=== PATIENT | female | born 1960 | race Caucasian/White ===

== ENCOUNTER 2016-08-13 05:27 | Inpatient (IN) ==
--- NOTE | 2016-07-23 12:03 | EKG Report ---
Test Performed on : 07/23/2016 11:24:28 AM Test Reason : PAT Blood Pressure : / mmHG Vent. Rate : 073 BPM Atrial Rate : 073 BPM P-R Int : 108 ms QRS Dur : 080 ms QT Int : 364 ms P-R-T Axes : 069 061 061 degrees QTc Int : 401 ms Sinus rhythm. with short IL Cannot rule out Anterior infarct , age undetermined (probably lead placement variability) Borderline ECG When compared with ECG of 30-DEC-2015 22:04, No significant change was found Confirmed by Lisbeth ORTIZ, Ciro Butcher ([id number]) on 07/23/2016 6:43:34 PM
[2016-07-23 12:13] LABS: HEMATOCRIT 43.1 % (37.0-47.0); HEMOGLOBIN 14.2 g/dL (12.0-16.0); MCH 31.8 PG (27-31); MCHC 32.9 g/dL (33-37); MCV 96.4 FL (81-99); MPV 9.8 FL (7.4-10.4); RBC 4.47 XMIL (4.2-5.4)
[2016-07-23 12:29] LABS: AGAP 10; BUN 15 mg/dL (8-22); CALCIUM 9.7 mg/dL (8.8-10.2); CHLORIDE 98 mmol/L (98-107); COSMO 273; POTASSIUM 4.1 mmol/L (3.5-5.1); SODIUM 136 mmol/L (136-145); TCO2 28 mmol/L (25-35)
[2016-08-10 12:11] LABS: AGAP 11; BUN 15 mg/dL (8-22); CALCIUM 9.2 mg/dL (8.8-10.2); CHLORIDE 103 mmol/L (98-107); COSMO 283; POTASSIUM 4.2 mmol/L (3.5-5.1); SODIUM 142 mmol/L (136-145); TCO2 28 mmol/L (25-35)
[2016-08-10 13:31] LABS: HEMATOCRIT 42.9 % (37.0-47.0); HEMOGLOBIN 13.9 g/dL (12.0-16.0); MCH 31.3 PG (27-31); MCHC 32.4 g/dL (33-37); MCV 96.6 FL (81-99); MPV 10.2 FL (7.4-10.4); RBC 4.44 XMIL (4.2-5.4)
[2016-08-13] MEDS ORDERED: REGLAN ONE (05:37)
[2016-08-13] MEDS ORDERED: VANCOMYCIN 1 GM/NS 1 GM/250 ML IVPB ONE (05:37)
[2016-08-13] MEDS ORDERED: PEPCID ONE (05:37)
[2016-08-13] MEDS ORDERED: LR 1,000 ML ONE ×2 (05:37→06:54)
[2016-08-13] MEDS ORDERED: NAROPIN 0.5% ONE (06:28)
[2016-08-13] MEDS ORDERED: SOLU-CORTEF IV ONE (06:30)
[2016-08-13] MEDS ORDERED: ROBINUL IV ONE (06:30)
[2016-08-13] MEDS ORDERED: VERSED ONE ×2 (06:40→11:05)
[2016-08-13] MEDS ORDERED: MARCAINE 0.25% PF/EPI 1:200,000 ONE (06:47)
[2016-08-13 08:25] LABS: URINE MICRO REVIEW NEEDED? NO; URINE SOURCE CATH
[2016-08-13 08:28] LABS: BILIRUBIN URINE NEGATIVE (NEGATIVE); BLOOD URINE NEGATIVE (NEGATIVE); COLOR STRAW; GLUCOSE URINE NEGATIVE (NEGATIVE); LEUKOCYTES URINE NEGATIVE (NEGATIVE); NITRITE URINE NEGATIVE (NEGATIVE); PH URINE 7.5; PROTEIN URINE NEGATIVE (NEGATIVE); SP GRAVITY URINE 1.006; TURBIDITY URINE CLEAR (CLEAR); UR EPITHELIAL CELLS <10 /HPF (<10); URINE BACTERIA NEGATIVE /HPF; URINE RBC <10 /HPF (<10); URINE WBC <10 /HPF (<10); UROBILINOGEN URINE NORMAL (NORMAL)
[2016-08-13] MEDS ORDERED: SODIUM CHLORIDE 0.9% 10 ML ONE (09:59)
[2016-08-13] MEDS ORDERED: EXPAREL 1.3% ONE (09:59)
[2016-08-13] MEDS ORDERED: MARCAINE 0.25% PF ONE (09:59)
[2016-08-13] MEDS ORDERED: FENTANYL ONE (11:04)
[2016-08-13] MEDS ORDERED: DIPRIVAN 1% ONE (11:05)
[2016-08-13] MEDS ORDERED: NORCURON ONE (11:11)
[2016-08-13] MEDS ORDERED: ROBINUL ONE (11:11)
[2016-08-13] MEDS ORDERED: QUELICIN (DOSE) ONE (11:11)
[2016-08-13] MEDS ORDERED: NEOSTIGMINE ONE (11:11)
[2016-08-13] MEDS ORDERED: LR 2,000 ML ONE (11:11)
[2016-08-13] MEDS ORDERED: XYLOCAINE-MPF 2% ONE (11:11)
[2016-08-13] MEDS ORDERED: ZOFRAN ONE (11:11)
[2016-08-13] MEDS ORDERED: DECADRON ONE (11:11)
[2016-08-13] MEDS ORDERED: OFIRMEV 1000 MG/ISOTONIC SOLN 1,000 MG/100 ML BOTTLE IV SCH (11:12)
[2016-08-13] MEDS ORDERED: OFIRMEV 1000 MG/ISOTONIC SOLN 1,000 MG/100 ML BOTTLE ONE (11:36)
[2016-08-13] MEDS: DILAUDID IV PRN ×5 (11:40→23:03)
[2016-08-13] MEDS ORDERED: SOLU-CORTEF 100 MG in NS 50 ML IV SCH (13:00)
--- NOTE | 2016-08-13 13:02 | Diag Imaging Result Document ---
PROCEDURE NAME: CHEST-PORTABLE - 08/13/2016 PORTABLE CHEST X-RAY: COMPARISON: 07/27/2016. FINDINGS: There are double right chest tubes. There are skin lila over the lateral right chest wall. Lung volumes are low. No significant focal infiltrates. No pneumothorax or pleural effusion. Heart size is normal. IMPRESSION: No complication.
--- NOTE | 2016-08-13 14:39 | OPERATIVE NOTE ---
PROCEDURE DATE: 08/13/2016 DATE OF PROCEDURE: 08/13/2016. PROCEDURE: Diagnostic bronchoscopy; right thoracoscopy with biopsy; right posterolateral thoracotomy with right lower lobectomy. SURGEON: Dr. Yunior Domínguez. PLANT UTILITY PERSON: Subha SHAMAR. PREOPERATIVE DIAGNOSIS: Right lower lobe mass. POSTOPERATIVE DIAGNOSIS: Malignant non-small cell carcinoma, right lower lobe. DESCRIPTION OF PROCEDURE: Satisfactory general and single lumen endotracheal anesthesia was achieved. The flexible bronchoscope was introduced through the oral endotracheal tube. We identified the livier, we identified the left upper lobe, the orifice to the lower lobe and the upper lobes appeared normal. We passed the scope into the right side. The orifice to the upper lobe, middle lobe and lower lobe all appeared normal in a normal anatomic position. No endobronchial lesions were seen. Mucus was aspirated. She was then switched to a double-lumen endotracheal tube, placed in a decubitus position with the right side up. We then prepped and draped her right lateral chest. We anesthetized the skin two fingerbreadths below the tip of the scapula. We made a transverse incision there, incised into the pleural space. The right side, the tracheal side of the endotracheal tube was clamped, allowing the right lung to decompress. After entering the pleural space, we then placed another incision right upper anterior chest and again introduced the Thoracoport there and finally one posteriorly. We identified the major fissure. We identified the upper lobe. We identified the superior dorsal segment of the lower lobe. With the camera through the most posterior Thoracoport I could identify what I felt to be area that was retracted slightly. I then used pushers to roll over this area, and it felt as if a mass was present in the superior dorsal segment of the lower lobe, so I felt confident that this was the area in question. We used a nontraumatic grasping forceps and grasped the mass lesion through the middle most Thoracoport. We then introduced an Endo MICA purple cartridge 60 cm long and stapled across the superior dorsal segment. We had to add an additional 45 to get completely across it and pull the lesion out the most anterior Thoracoport and sent it for frozen section. The frozen section came back as non-small cell malignancy. We then marked the skin, and we then made a posterior lateral thoracotomy incision. It did go through the middle Thoracoport site. We used the electrocautery to go through the subcutaneous tissue, through the latissimus dorsi muscle, through the serratus anterior muscle, and portion of the rhomboids posteriorly. We then entered the sixth intercostal space, which is where a Thoracoport had been placed. Then we opened the chest the extent of the skin incision. The lung was decompressed nicely. We incised the inferior pulmonary ligament. We then went to the major fissure, and the pulmonary artery was identified in the major fissure. We could see branches to the lower lobe, as well as the branch to the superior dorsal segment. We doubly ligated the branches to the lower lobe and then divided them. We took care to avoid injury to the artery to the middle lobe. The anterior fissure was essentially complete. We then dissected deep through the parenchyma right at posterior to the bronchus. We were able to introduce the Endo-MICA purple cartridge 60 cm long and had to do a 60 and a 45 to get completely in to completely divide the fissure. We then identified the inferior pulmonary vein, and dissected around it until we could pass an Endo-MICA hall cartridge to staple and divide it. This then left us with the lower lobe bronchus. We used Endo-MICA black cartridge. It was 45 cm long and passed it across the bronchus. We then closed it. We then allowed the anesthesia people to inflate the upper and middle lobes, which inflated nicely. We then stapled and divided the lower lobe bronchus and handed off the right lower lobe. We went ahead and allowed them to reinflate the upper and middle lobes adequately and completely. We then use ProGEL on the lung parenchyma in order to help stop the leak from the staple line. We did test the bronchus to 35 spheres and it showed no leak. We placed a 28 trocar chest tube through our upper anterior Thoracoport site and secured it there with a 0 silk. I then used a [address] inferiorly to drain the inferior aspect of the thorax. This was also secured with 0 silk. We drilled 3 holes in the sixth rib, 3 holes in the seventh rib and passed #2 Tycron through them to reapproximate the ribs. We used Exparel 20 mL with 30 mL of 0.25 Marcaine plain and 10 mL of normal saline, and then injected it below each the sixth and the seventh ribs, along the course of the muscles, and along the course of the subcutaneous tissue. We then approximated the ribs with our rib reapproximater and then tied the #2 Tycron. We then closed the long serratus or brevis serratus anterior with 1 Polysorb; we closed the latissimus with a 1 Polysorb; we closed the fascia with a 0 Polysorb; we closed the skin with lila. Sterile dressing was applied. Chest tubes were attached to the Pleur-evac. She tolerated it well and was sent to the recovery room in satisfactory condition. cc: MD Nico Romo MD Naveen T. Lobo, MD
[2016-08-13] MEDS: NS 1,000 ML IV SCH ×2 (15:31→21:09)
[2016-08-13] MEDS: STERILE WATER INJ. INJ SCH ×2 (15:32→23:06)
[2016-08-13] MEDS: SOLU-CORTEF IV SCH ×2 (15:32→23:02)
[2016-08-13] MEDS: OFIRMEV 1000 MG/ISOTONIC SOLN 1,000 MG/100 ML BOTTLE IV SCH ×2 (17:42→23:02)
[2016-08-13] MEDS: ZOFRAN IV PRN ×2 (17:42→23:02)
[2016-08-13] MEDS: QVAR 80 MICROGM INHALER INH SCH (19:48)
[2016-08-13] MEDS: ALBUTEROL NEB INH PRN (19:48)
[2016-08-13] MEDS: PERIDEX MT SCH (21:09)
[2016-08-13] MEDS: VANCOMYCIN 1 GM/NS 1 GM/250 ML IVPB IV SCH (21:09)
[2016-08-13] MEDS: ULTRAM PO PRN (21:10)
[2016-08-14] MEDS: ZOFRAN IV PRN ×3 (04:08→21:32)
[2016-08-14] MEDS: OFIRMEV 1000 MG/ISOTONIC SOLN 1,000 MG/100 ML BOTTLE IV SCH ×4 (04:08→23:25)
[2016-08-14 04:47] LABS: ALLEN TEST YES; BE -0.5 mmoll (-3.0-3.0); BLOOD TYPE ARTERIAL; DRAW SITE R RADIAL; METHB 2.1 % (0.0-1.5); PCO2(98.6) 39 mmHg (35-45); PO2(98.6) 104 mmHg (60-100); SAMPLE BLOOD; SAO2 99.6 % (95.0-100.0)
[2016-08-14 04:50] LABS: MODALITY CANNULA
[2016-08-14 04:57] LABS: MANUAL DIFF NEEDED? NO
[2016-08-14 05:01] LABS: EOS# 0.01 X1000 (0.0-0.7); EOS% 0.1 % (0.0-10.0); HEMATOCRIT 36.2 % (37.0-47.0); HEMOGLOBIN 11.7 g/dL (12.0-16.0); IMM GRAN# 0.02 X1000 (0.0-0.04); IMM GRAN% 0.2 % (0.0-0.5); LYMPH# 0.91 X1000 (1.2-3.4); LYMPH% 10.2 % (20.5-51.1); MCHC 32.3 g/dL (33-37); MCV 95.8 FL (81-99); MONO# 0.58 X1000 (0.11-0.59); MONO% 6.5 % (1.7-9.3); MPV 9.8 FL (7.4-10.4); PLT 246 X1000 (130-400); RBC 3.78 XMIL (4.2-5.4)
[2016-08-14 05:19] LABS: AGAP 11; BUN 9 mg/dL (8-22); CALCIUM 8.2 mg/dL (8.8-10.2); CHLORIDE 101 mmol/L (98-107); COSMO 267; POTASSIUM 4.4 mmol/L (3.5-5.1); SODIUM 133 mmol/L (136-145); TCO2 21 mmol/L (25-35)
[2016-08-14] MEDS: SOLU-CORTEF IV SCH ×2 (06:30→17:42)
[2016-08-14] MEDS: DILAUDID IV PRN ×5 (06:31→18:58)
[2016-08-14] MEDS: VANCOMYCIN 1 GM/NS 1 GM/250 ML IVPB IV SCH ×2 (06:31→18:12)
[2016-08-14] MEDS: PERIDEX MT SCH ×2 (08:11→20:36)
[2016-08-14] MEDS: NICODERM PATCH TD SCH (08:13)
[2016-08-14] MEDS: SPIRIVA INH SCH (08:17)
[2016-08-14] MEDS: ALBUTEROL NEB INH PRN ×2 (08:17→19:16)
[2016-08-14] MEDS: QVAR 80 MICROGM INHALER INH SCH ×2 (08:18→19:16)
[2016-08-14] MEDS: NS 1,000 ML IV SCH ×3 (11:57→21:33)
[2016-08-14] MEDS: STERILE WATER INJ. INJ SCH ×3 (12:00→17:43)
[2016-08-14] MEDS ORDERED: PNEUMOVAX 23 IM ONE (12:00)
[2016-08-14] MEDS: TUMS PO PRN ×2 (15:01→18:58)
[2016-08-14] MEDS ORDERED: BLISTEX MEDICATED BERRY LIP BALM TOP PRN (20:38)
[2016-08-15] MEDS: ALBUTEROL NEB INH PRN (07:44)
[2016-08-15] MEDS: QVAR 80 MICROGM INHALER INH SCH ×2 (07:44→20:15)
[2016-08-15] MEDS: SPIRIVA INH SCH (07:44)
[2016-08-15] MEDS: OFIRMEV 1000 MG/ISOTONIC SOLN 1,000 MG/100 ML BOTTLE IV SCH ×3 (09:19→17:30)
[2016-08-15] MEDS: VANCOMYCIN 1 GM/NS 1 GM/250 ML IVPB IV SCH ×2 (09:20→21:55)
[2016-08-15] MEDS: STERILE WATER INJ. INJ SCH ×2 (09:21→17:30)
[2016-08-15] MEDS: NS 1,000 ML IV SCH ×2 (09:21→17:39)
[2016-08-15] MEDS: SOLU-CORTEF IV SCH ×2 (09:21→17:30)
[2016-08-15] MEDS: NICODERM PATCH TD SCH (09:22)
[2016-08-15] MEDS: PERIDEX MT SCH ×2 (09:36→21:55)
[2016-08-15] MEDS: MIRALAX PO SCH (09:36)
--- NOTE | 2016-08-15 10:57 | PROGRESS NOTE ---
DATE: 08/15/2016 SUBJECTIVE: She is sitting in the chair. She is in good spirits. Minimal discomfort. OBJECTIVE: Vital Signs: Temperature is 98.4 degrees, pulse 76, blood pressure 100/68, oxygen saturations 94% on nasal cannula. Chest/Skin: The dressing is clean, dry, and intact. She has got [address] to suction[address] While one of the tubes has a forced expiratory air leak, the other does not, and there is minimal serosanguineous drainage in the tubes. DIAGNOSTIC DATA: I reviewed her labs from yesterday. ABG looked good. Nothing new this morning. Chest x-ray is clear with good expansion of the lung. No subcutaneous air. No effusion. ASSESSMENT AND PLAN: A 55-year-old female, status post right lower lobectomy. She is doing well. She has got an air leak. We will keep her tubes to suction per Dr. Domínguez's protocol. There are transfer orders in to the floor. She is on a diet, and her pain seems reasonably well controlled. We will continue aggressive pulmonary toileting. I have discussed the importance of this with the patient. She is on a steroid taper 100 mg intravenously twice daily. We will begin tapering this again tomorrow, but otherwise, physical therapy and pulmonary toileting is her big issue right now. We will keep her chest tubes. cc: MD Yunior Ruiz MD
[2016-08-15] MEDS: DILAUDID IV PRN ×2 (14:15→21:55)
[2016-08-15] MEDS: ULTRAM PO PRN (17:38)
[2016-08-16] MEDS: OFIRMEV 1000 MG/ISOTONIC SOLN 1,000 MG/100 ML BOTTLE IV SCH ×4 (00:28→18:11)
[2016-08-16] MEDS: TUMS PO PRN ×2 (00:34→05:20)
[2016-08-16] MEDS: ULTRAM PO PRN ×4 (00:57→22:59)
[2016-08-16] MEDS: NS 1,000 ML IV SCH ×2 (01:05→18:13)
[2016-08-16] MEDS: SOLU-CORTEF IV SCH ×2 (05:20→18:11)
[2016-08-16] MEDS: STERILE WATER INJ. INJ SCH ×2 (07:20→19:47)
[2016-08-16] MEDS: QVAR 80 MICROGM INHALER INH SCH ×2 (08:03→19:00)
[2016-08-16] MEDS: ALBUTEROL NEB INH PRN ×2 (08:04→15:30)
[2016-08-16] MEDS: SPIRIVA INH SCH (08:04)
[2016-08-16] MEDS: VANCOMYCIN 1 GM/NS 1 GM/250 ML IVPB IV SCH ×2 (08:09→22:58)
[2016-08-16] MEDS: ZOFRAN IV PRN (08:10)
[2016-08-16] MEDS: MIRALAX PO SCH (08:10)
[2016-08-16] MEDS: PERIDEX MT SCH ×2 (08:12→23:00)
[2016-08-16] MEDS: NICODERM PATCH TD SCH (10:57)
--- NOTE | 2016-08-16 14:43 | PROGRESS NOTE ---
DATE: 08/16/2016 SUBJECTIVE: She is doing well. No complaints. Pain is well controlled. She is sitting in bed, breathing well. OBJECTIVE: Vital signs: No fevers. No tachycardia. Blood pressure is okay. Chest: Right chest dressings is intact. The chest tubes have minimal serosanguineous output. The leak in the inferior tube is improving and is for most part resolved with forced expiration. Both are tidaling well. LABS: I have reviewed her labs. Nothing new today. Chest x-ray shows good expansion of the right lung. No pneumothorax. No effusion. ASSESSMENT AND PLAN: A 55-year-old female status post right lower lobectomy. She is doing well clinically. The leak has resolved. Will water seal tube and check a chest x- ray at noon. Otherwise physical therapy and pulmonary toileting. I think we will begin removing tubes over the course of tomorrow and the next day. cc: MD Yunior Ruiz MD MTDD
--- NOTE | 2016-08-16 17:10 | Diag Imaging Result Document ---
PROCEDURE NAME: CHEST-PORTABLE - 08/16/2016 PORTABLE CHEST: FINDINGS: Compared with 08/15/2016. Two right chest tubes remain in place. There is a questionable small pneumothorax at the right apex. There is a tiny pleural effusion versus mild pleural thickening at the lateral right base. There is hazy atelectasis at the left base similar to the previous exam. There are no other acute changes identified. IMPRESSION: 1. Questionable small pneumothorax at right apex. 2. Hazy atelectasis at left base.
--- NOTE | 2016-08-16 17:13 | Diag Imaging Result Document ---
PROCEDURE NAME: CHEST-PORTABLE - 08/16/2016 PORTABLE CHEST 1155 HOURS: COMPARISON: Compared with a previous exam of same day at 0830 hours. FINDINGS: Two right chest tubes remain in place. There is a questionable small pneumothorax at the right apex which, at present, appears essentially stable. There is hazy mild atelectasis at the left base which appears to have decreased mildly. There are no other acute changes identified. IMPRESSION: Questionable small pneumothorax at right apex similar to prior. Mild atelectasis at left base which has decreased.
[2016-08-17] MEDS: DILAUDID IV PRN (00:13)
[2016-08-17] MEDS: OFIRMEV 1000 MG/ISOTONIC SOLN 1,000 MG/100 ML BOTTLE IV SCH ×4 (03:29→22:05)
[2016-08-17] MEDS: SOLU-CORTEF IV SCH (06:29)
[2016-08-17] MEDS: ULTRAM PO PRN ×3 (06:29→19:44)
[2016-08-17] MEDS ORDERED: SALINE LOCK IV FLUID XX ONE (07:16)
--- NOTE | 2016-08-17 07:32 | Diag Imaging Result Document ---
PROCEDURE NAME: CHEST-PORTABLE - 08/15/2016 PORTABLE CHEST: COMPARISON: 08/13/2016. FINDINGS: No change in the right-sided chest tube or the right-sided skin lila. No pneumothorax identified. The heart is not enlarged. The vessels are not distended. Minimal atelectasis in the left base. No pleural effusions. IMPRESSION: Increased markings in the left base have developed since the prior exam and likely represent atelectasis although there could be a tiny underlying infiltrate.
[2016-08-17] MEDS: QVAR 80 MICROGM INHALER INH SCH ×2 (07:46→20:05)
[2016-08-17] MEDS: SPIRIVA INH SCH (07:47)
[2016-08-17] MEDS: ALBUTEROL NEB INH PRN ×2 (07:47→20:06)
[2016-08-17] MEDS: PERIDEX MT SCH ×2 (08:21→22:05)
[2016-08-17] MEDS: MIRALAX PO SCH (08:22)
[2016-08-17] MEDS: NICODERM PATCH TD SCH (08:22)
[2016-08-17] MEDS: PREDNISONE PO SCH ×2 (08:34→22:05)
[2016-08-18] MEDS: ULTRAM PO PRN ×3 (02:03→14:42)
[2016-08-18] MEDS: OFIRMEV 1000 MG/ISOTONIC SOLN 1,000 MG/100 ML BOTTLE IV SCH ×3 (03:20→14:39)
[2016-08-18] MEDS: QVAR 80 MICROGM INHALER INH SCH (08:10)
[2016-08-18] MEDS: SPIRIVA INH SCH (08:10)
[2016-08-18] MEDS: ALBUTEROL NEB INH PRN ×2 (08:10→15:38)
[2016-08-18] MEDS: NICODERM PATCH TD SCH (08:31)
[2016-08-18] MEDS: PERIDEX MT SCH (08:31)
[2016-08-18] MEDS: MIRALAX PO SCH (08:31)
[2016-08-18] MEDS: PREDNISONE PO SCH (08:32)
--- NOTE | 2016-08-18 08:44 | Diag Imaging Result Doc PS360 ---
CHEST-PORTABLE - 08/18/2016 INDICATION: Postthoracotomy COMPARISON: 08/16/2016 FINDINGS: The upper chest tube has been removed. A right basilar chest tube remains in place. There is now a small right apical pneumothorax measuring 1.3 cm. Heart size is normal. IMPRESSION: Removal of the upper right chest tube. Small right apical pneumothorax. Electronically signed by Foreign Styles 08/18/2016 8:42 AM
[2016-08-18 15:43] VITALS: BP 122/81
--- NOTE | 2016-08-26 14:06 | DISCHARGE SUMMARY ---
ADMISSION DATE: 08/13/2016 DISCHARGE DATE: 08/18/2016 PRIMARY DISCHARGE DIAGNOSIS: Squamous cell carcinoma of the right lower lobe. PRIMARY PROCEDURE: A right lower lobectomy. HISTORY: This is a 55-year-old with a known lesion in the right lower lobe superior dorsal segment. It had been present for awhile, but it was hot on PET scan. She was sent for evaluation, resection and possible lobectomy. Following her admission, she was taken to the operating room on 08/13. This lesion was removed thoracoscopically, but proved to be malignant. So we proceeded with right lateral thoracotomy and right lower lobectomy. Her postoperative course was unremarkable. She had been on steroids at home, which we gave her a steroid dose, but tapered it during the course of her hospital stay. We removed her Shine on the first postoperative day. We transferred her out of the unit on the first postoperative day. We removed her upper chest tube by the fourth postoperative day, and the fifth postoperative day we removed her lower chest tube. She was discharged on 08/18. Her chest x-ray at the time of discharge showed almost complete resolution of the pneumothorax on the right side. Her wound was fine. She will follow up in the office. Her pathology revealed a squamous cell carcinoma with no positive nodes. cc: MD Nico Romo MD
== END 2016-08-18 18:14 | disposition home or self-care (01) ==
LOC: ICU 05:27 → OR 05:27 → OBSVTOIN 12:08 → 4N 08-15 15:28
PROVIDERS: ADMIT Surgery; ATTEND Surgery